=== PATIENT | female | born 1960 | race Caucasian/White ===

== ENCOUNTER 2021-08-05 06:27 | Day surgery (SDC) | payer BC ==
[~2021-08-05] VITALS: Ht 162.6 cm; Wt 62.5 kg
[~2021-08-05 06:27] MED LIST: PROPOFOL 10 MG/ML (20ML) VIAL. IV ONE
[2021-08-05 06:52] VITALS: BP 116/76
[2021-08-05] MEDS ORDERED: IV RINGERS,LACTATED 1000ML 1,000 ML IV SCH (07:00)
--- NOTE | 2021-08-05 07:27 | HP ---
ADMIT DATE: 08/05/2021 UPDATED HISTORY AND PHYSICAL REFERRING PHYSICIAN: Francesca Castaneda MD REASON FOR CONSULTATION: Family history of colon cancer. HISTORY OF PRESENT ILLNESS: A 60-year-old female with past medical history significant for endometriosis, fibromyalgia, who is seen for interval colonoscopy. Family history is positive for colon cancer with her grandfather. Bowel habits have been unchanged with occasional diarrhea when she takes her magnesium. There has been no bleeding. No change in weight or appetite. She is otherwise without additional complaints. PAST MEDICAL HISTORY: Arthritis, endometriosis, fibromyalgia. PAST SURGICAL HISTORY: She is status post cholecystectomy, status post breast surgery, status post eye surgery, status post hysterectomy. SOCIAL HISTORY: She is a former smoker, social drinker. FAMILY HISTORY: Significant for CVA with her father, colon polyps with her mother, colon cancer with the grandfather, diabetes in both parents. REVIEW OF SYSTEMS: Per records. PHYSICAL EXAMINATION: GENERAL: Reveals a well-nourished, well-developed female who is alert, cooperative, in no acute distress. VITAL SIGNS: Temperature is 98.4, pulse 85, respirations 20. LUNGS: Clear. CARDIOVASCULAR: Reveals an S1, S2, without S3, S4 or appreciable murmur. ABDOMEN: With a soft abdomen, normal bowel sounds, without appreciable hepatosplenomegaly. EXTREMITIES: Reveals no cyanosis, clubbing or edema. IMPRESSION: Colorectal screening. Risks and benefits of procedure including infection, perforation with operation were discussed. The patient is willing to proceed at this time. I would like to thank Dr. Castaneda for allowing us to consult and participate in this patient's care. SERGEY DR: Mal TID: [id number] CC: FRANCESCA CASTANEDA MD
[2021-08-05 07:40] VITALS: BP 100/56
== END 2021-08-05 07:55 | disposition home or self-care (01) ==
LOC: ENDOS 06:27
PROVIDERS: ATTEND Internal Medicine Gastroenterology
DX: Z12.11 Encounter for screening for malignant neoplasm of colon (principal); K64.0 First degree hemorrhoids; K63.89 Other specified diseases of intestine; M19.90 Unspecified osteoarthritis, unspecified site; Z90.49 Acquired absence of other specified parts of digestive tract; Z90.710 Acquired absence of both cervix and uterus; Z98.890 Other specified postprocedural states; Z79.899 Other long term (current) drug therapy; Z80.0 Family history of malignant neoplasm of digestive organs; Z88.8 Allergy status to other drugs, medicaments and biological substances
CPT/HCPCS: 45378; J2704